=== PATIENT | female | born 1930 | race Caucasian/White ===

== ENCOUNTER 2018-05-24 07:00 | Inpatient (IN) | payer OTHER ==
[~2018-05-24] VITALS: Ht 157.5 cm; Wt 54.4 kg
[2018-05-24] MEDS ORDERED: SERTRALINE HCL50 MG PO (08:05)
[2018-05-30] MEDS ORDERED: DUI500 PO (15:31)
[2018-05-30] MEDS ORDERED: XARELTO10 MG PO (15:31)
[2018-05-30] MEDS ORDERED: PERCOCET 5-3251 EACH PO (15:31)
== END 2018-05-30 17:05 | disposition home or self-care (01) | DRG 470 ==
LOC: O/R 05-28 06:00 → SURH 05-28 06:00
PROVIDERS: Orthopaedic Surgery
PROC: 0QNF0ZZ Release Left Patella, Open Approach (ICD-10-PCS; 2018-05-28)
PROC: 0SRD0J9 Replacement of Left Knee Joint with Synthetic Substitute, Cemented, Open Approach (ICD-10-PCS; principal; 2018-05-28 21:15)
DX: M17.12 Unilateral primary osteoarthritis, left knee (principal); D62 Acute posthemorrhagic anemia; M81.0 Age-related osteoporosis without current pathological fracture; M22.12 Recurrent subluxation of patella, left knee; E78.2 Mixed hyperlipidemia